=== PATIENT | male | born 1970 | race African-American/Black ===

== ENCOUNTER 2018-12-22 20:23 | Emergency (ER) | payer OTHER ==
[~2018-12-22] VITALS: Ht 170.2 cm; Wt 77.1 kg
[2018-12-22] MEDS ORDERED: NAPROSYN500 M1 PO (22:07)
[2018-12-22] MEDS ORDERED: FLEXERIL PO (22:07)
[2018-12-22 22:24] VITALS: BP 140/88
== END 2018-12-22 22:26 | disposition home or self-care (01) ==
LOC: M.ERS 20:23
DX: S01.01XA Laceration without foreign body of scalp, initial encounter (principal); W20.8XXA Other cause of strike by thrown, projected or falling object, initial encounter; Y92.89 Other specified places as the place of occurrence of the external cause; Y93.89 Activity, other specified; Y99.8 Other external cause status